=== PATIENT | male | born 1980 | race Caucasian/White ===

== ENCOUNTER 2020-05-30 15:35 | Emergency (ER) | payer BC, MEDICAID ==
[~2020-05-30] VITALS: Ht 188 cm; Wt 88.4 kg
[2020-05-30] MEDS ORDERED: LORazepam 2 mg/ml vial IV ONE (18:00)
[2020-05-30] MEDS ORDERED: normal saline 1000ML IV soln IVB ONE (18:00)
[2020-05-30 18:29] LABS: BASOPHILS % (AUTO) 0.4 % (0-1); EOSINOPHILS # (AUTO) 0.3 X10'3 (0-0.9); EOSINOPHILS % (AUTO) 3.7 % (0-6); HEMATOCRIT 46.1 % (42.0-52.0); HEMOGLOBIN 15.4 g/dl (14.0-17.9); LYMPHOCYTES # (AUTO) 2.1 X10'3 (1.1-4.8); LYMPHOCYTES % (AUTO) 23.1 % (21-51); MEAN CORPUSCULAR HEMOGLOBIN 30.7 PG (27.0-31.0); MEAN CORPUSCULAR HGB CONC 33.5 g/dL (33.0-36.5); MEAN CORPUSCULAR VOLUME 91.8 FL (78-98); MEAN PLATELET VOLUME 9.2 FL (7.4-10.4); MONOCYTES # (AUTO) 0.8 X10'3 (0-0.9); MONOCYTES % (AUTO) 8.5 % (2-12); NEUTROPHILS # (AUTO) 5.9 X10'3 (1.8-7.7); NEUTROPHILS % (AUTO) 64.3 % (42-75); PLATELET COUNT 224 X10'3 (140-440); RED BLOOD COUNT 5.02 X10'6 (4.70-6.10); RED CELL DISTRIBUTION WIDTH 13.5 % (11.5-14.5); WHITE BLOOD COUNT 9.1 X10'3 (4.5-11.0)
[2020-05-30 18:44] LABS: ALANINE AMINOTRANSFERASE 35 U/L (12-78); ALBUMIN/GLOBULIN RATIO 1.2 (1.1-1.5); ALKALINE PHOSPHATASE 70 IU/L (46-116); ANION GAP 7 (8-16); ASPARTATE AMINO TRANSFERASE 17 U/L (10-37); BILIRUBIN,TOTAL 0.2 MG/DL (0.1-1.0); BLOOD UREA NITROGEN 21 MG/DL (7-18); BUN/CREATININE RATIO 21.4 (5.4-32.0); CALCIUM 9.2 MG/DL (8.5-10.1); CHLORIDE 104 MMOL/L (99-107); CREATININE 0.98 MG/DL (0.60-1.10); GLUCOSE 77 MG/DL (70-104); POTASSIUM 4.2 MMOL/L (3.5-5.1); SODIUM 140 MMOL/L (135-145); TOTAL PROTEIN 7.4 G/DL (6.4-8.2); eGFR 85 ML/MIN
[2020-05-30] MEDS ORDERED: duloxetine 20mg capsule.DR PO STA (19:12)
[2020-05-30] MEDS ORDERED: DULO20CA50 PO (19:18)
[2020-05-30 19:31] VITALS: BP 136/82
== END 2020-05-30 19:32 | disposition home or self-care (01) ==
LOC: ER 15:36
DX: F41.9 Anxiety disorder, unspecified (principal); R53.83 Other fatigue; R11.0 Nausea; E86.0 Dehydration; R42 Dizziness and giddiness; R07.89 Other chest pain; J45.909 Unspecified asthma, uncomplicated; F32.9 Major depressive disorder, single episode, unspecified; F12.90 Cannabis use, unspecified, uncomplicated; Z98.890 Other specified postprocedural states; Z79.899 Other long term (current) drug therapy
CPT/HCPCS: 36415; 80053; 85025; 93005; 96361; 96374; 99284; J2060; J7030

== ENCOUNTER 2020-07-10 20:43 | Emergency (ER) | payer MEDICAID ==
[~2020-07-10] VITALS: Ht 188 cm; Wt 86.0 kg
[~2020-07-10 20:43] MED LIST: DULO20CA50 PO
[2020-07-10 20:49] VITALS: BP 118/86
[2020-07-10 22:02] LABS: CLARITY,URINE CLEAR (Clear); COLOR,URINE YELLOW (Yellow); GLUCOSE, URINE NEGATIVE (Neg); KETONES,URINE NEGATIVE (Neg); LEUKOCYTE ESTERASE ,URINE NEGATIVE (Neg); NITRITES, URINE NEGATIVE (Neg); OCCULT BLOOD,URINE NEGATIVE (Neg); PROTEIN,URINE NEGATIVE (Neg); UROBILINOGEN,URINE 0.2 E.U/dL (0.2-1.0)
[2020-07-10 22:13] LABS: UA COLLECTION TYPE CLN CATCH MIDSTREAM
== END 2020-07-10 23:42 | disposition home or self-care (01) ==
LOC: ER 20:44
DX: K40.90 Unilateral inguinal hernia, without obstruction or gangrene, not specified as recurrent (principal); J45.909 Unspecified asthma, uncomplicated; F12.90 Cannabis use, unspecified, uncomplicated; Z98.890 Other specified postprocedural states
CPT/HCPCS: 76870; 81003; 93976; 99284

== ENCOUNTER 2020-10-11 19:18 | Emergency (ER) | payer MEDICAID ==
[~2020-10-11] VITALS: Ht 188 cm; Wt 88.6 kg
[2020-10-11 19:55] LABS: BASOPHILS # (AUTO) 0.1 X10'3 (0-0.2); BASOPHILS % (AUTO) 0.6 % (0-1); EOSINOPHILS # (AUTO) 0.5 X10'3 (0-0.9); EOSINOPHILS % (AUTO) 3.6 % (0-6); HEMATOCRIT 41.5 % (42.0-52.0); LYMPHOCYTES # (AUTO) 2.1 X10'3 (1.1-4.8); LYMPHOCYTES % (AUTO) 14.6 % (21-51); MEAN CORPUSCULAR HEMOGLOBIN 31.1 PG (27.0-31.0); MEAN CORPUSCULAR HGB CONC 33.7 g/dL (33.0-36.5); MEAN CORPUSCULAR VOLUME 92.3 FL (78-98); MEAN PLATELET VOLUME 8.2 FL (7.4-10.4); MONOCYTES # (AUTO) 1.4 X10'3 (0-0.9); MONOCYTES % (AUTO) 9.9 % (2-12); NEUTROPHILS # (AUTO) 10.4 X10'3 (1.8-7.7); NEUTROPHILS % (AUTO) 71.3 % (42-75); PLATELET COUNT 181 X10'3 (140-440); RED BLOOD COUNT 4.49 X10'6 (4.70-6.10); RED CELL DISTRIBUTION WIDTH 13.6 % (11.5-14.5); WHITE BLOOD COUNT 14.6 X10'3 (4.5-11.0)
[2020-10-11 20:13] LABS: ALANINE AMINOTRANSFERASE 20 U/L (12-78); ALBUMIN 3.6 G/DL (3.4-5.0); ALBUMIN/GLOBULIN RATIO 0.9 (1.1-1.5); ALKALINE PHOSPHATASE 89 IU/L (46-116); ANION GAP 7 (8-16); ASPARTATE AMINO TRANSFERASE 15 U/L (10-37); BILIRUBIN,TOTAL 0.3 MG/DL (0.1-1.0); BLOOD UREA NITROGEN 24 MG/DL (7-18); BUN/CREATININE RATIO 18.3 (5.4-32.0); CALCIUM 8.7 MG/DL (8.5-10.1); CHLORIDE 103 MMOL/L (99-107); CREATININE 1.31 MG/DL (0.60-1.10); GLUCOSE 102 MG/DL (70-104); POTASSIUM 4.2 MMOL/L (3.5-5.1); SODIUM 138 MMOL/L (135-145); TOTAL CARBON DIOXIDE 28.3 MMOL/L (24-32); TOTAL PROTEIN 7.4 G/DL (6.4-8.2); eGFR 60 ML/MIN
[2020-10-11] MEDS ORDERED: thiamine 100mg/ml 2ml inj. IV ONE (20:25)
[2020-10-11] MEDS ORDERED: folic acid 1mg/0.2ml inj IV ONE (20:25)
[2020-10-11] MEDS ORDERED: normal saline 1000ML IV soln IVB ONE (20:25)
[2020-10-11 20:47] LABS: ETHANOL < 0.010 GM/DL (0.0-0.010)
[2020-10-11 20:53] LABS: URINE AMPHETAMINE SCREEN NEGATIVE (Neg); URINE BARBITUATE SCREEN NEGATIVE (Neg); URINE BENZODIAZEPINES SCREEN NEGATIVE (Neg); URINE CANNABINOID SCREEN POSITIVE (Neg); URINE COCAINE SCREEN NEGATIVE (Neg); URINE METHADONE SCREEN NEGATIVE (Neg); URINE OPIATE SCREEN NEGATIVE (Neg); URINE PHENCYCLIDINE SCREEN NEGATIVE (Neg)
--- NOTE | 2020-10-12 | NUR ---
Pt brought over from main ER.
--- NOTE | 2020-10-12 01:00 | NUR ---
Pt resting quietly, respirations normal, no s/s of distress.
[2020-10-12] MEDS ORDERED: HYDR50TA65 (01:15)
[2020-10-12] MEDS ORDERED: ALPR0.255 PO ×2 (01:15→01:41)
[2020-10-12] MEDS ORDERED: LURA80TA3 PO (01:15)
[2020-10-12] MEDS ORDERED: PROP10TA10 PO (01:15)
[2020-10-12] MEDS ORDERED: LAMO200T10 PO (01:15)
[2020-10-12] MEDS ORDERED: HYDR-3927 PO (01:37)
--- NOTE | 2020-10-12 02:00 | NUR ---
Pt up to restroom. Med rec completed.
--- NOTE | 2020-10-12 03:00 | NUR ---
Pt resting quietly, respirations normal, no s/s of distress.
--- NOTE | 2020-10-12 03:51 | NUR ---
Pt resting quietly, respirations normal, no s/s of distress.
[2020-10-12] MEDS ORDERED: lurasidone 20mg tablet PO SCH (08:00)
[2020-10-12] MEDS ORDERED: propranolol 10mg tablet PO SCH (08:00)
[2020-10-12] MEDS ORDERED: lamoTRIgine 100mg tablet PO SCH (08:00)
--- NOTE | 2020-10-12 08:25 | NUR ---
Pt feeling anxious and tightness in his chest. Pt wanted to use an inhaler as he has a HX of asthma. LUngs clear. 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 Pt takes hydralazine and xanax at home for anxiety issues.
[2020-10-12] MEDS ORDERED: LORazepam 1 MG tablet PO PRN (09:55)
--- NOTE | 2020-10-12 12:35 | NUR ---
pt just up and ambulated to the bathroom, back to bed, no needs at this time
[2020-10-12 12:39] LABS: BASOPHILS % (AUTO) 0.4 % (0-1); EOSINOPHILS # (AUTO) 0.3 X10'3 (0-0.9); EOSINOPHILS % (AUTO) 2.8 % (0-6); HEMATOCRIT 44.7 % (42.0-52.0); HEMOGLOBIN 15.1 g/dl (14.0-17.9); LYMPHOCYTES # (AUTO) 1.7 X10'3 (1.1-4.8); LYMPHOCYTES % (AUTO) 14.9 % (21-51); MEAN CORPUSCULAR HEMOGLOBIN 31.5 PG (27.0-31.0); MEAN CORPUSCULAR HGB CONC 33.8 g/dL (33.0-36.5); MEAN CORPUSCULAR VOLUME 93.1 FL (78-98); MEAN PLATELET VOLUME 8.4 FL (7.4-10.4); MONOCYTES % (AUTO) 8.7 % (2-12); NEUTROPHILS # (AUTO) 8.2 X10'3 (1.8-7.7); NEUTROPHILS % (AUTO) 73.2 % (42-75); PLATELET COUNT 189 X10'3 (140-440); RED CELL DISTRIBUTION WIDTH 14.1 % (11.5-14.5); WHITE BLOOD COUNT 11.2 X10'3 (4.5-11.0)
[2020-10-12 12:42] LABS: CLARITY,URINE CLEAR (Clear); COLOR,URINE YELLOW (Yellow); GLUCOSE, URINE NEGATIVE (Neg); KETONES,URINE NEGATIVE (Neg); LEUKOCYTE ESTERASE ,URINE NEGATIVE (Neg); NITRITES, URINE NEGATIVE (Neg); OCCULT BLOOD,URINE NEGATIVE (Neg); PROTEIN,URINE NEGATIVE (Neg); UROBILINOGEN,URINE 0.2 E.U/dL (0.2-1.0)
[2020-10-12 12:47] LABS: UA COLLECTION TYPE NON-SPECIFIED
--- NOTE | 2020-10-12 16:02 | NUR ---
[facility]AC[facility] ACCEPTED PT PENDING UA AND COVID.
--- NOTE | 2020-10-12 16:48 | NUR ---
[facility] BY [facility]. [facility] ETA 183.
[2020-10-12 17:40] VITALS: BP 126/88
== END 2020-10-12 18:39 ==
LOC: ER 19:18
DX: F31.9 Bipolar disorder, unspecified (principal); R45.851 Suicidal ideations; R07.89 Other chest pain; Z20.828 Contact with and (suspected) exposure to other viral communicable diseases; F10.10 Alcohol abuse, uncomplicated; F41.9 Anxiety disorder, unspecified; J45.909 Unspecified asthma, uncomplicated; F12.90 Cannabis use, unspecified, uncomplicated; Z98.890 Other specified postprocedural states; Z79.899 Other long term (current) drug therapy; Y90.0 Blood alcohol level of less than 20 mg/100 ml
CPT/HCPCS: 36415; 80053; 80305; 80320; 81003; 84443; 85025; 87426; 93005; 96361; 96374; 96375; 99285; J3411; J3490; J7030